=== PATIENT | female | born 1980 | race Hispanic/Latino ===

== ENCOUNTER 2019-11-08 12:18 | Emergency (ER) | payer BC, OTHER ==
[~2019-11-08] VITALS: Ht 162.6 cm; Wt 76.2 kg
[~2019-11-08 12:18] MED LIST: Z.0.DIAZEPAM5 MG; Z.0.DIFLUNISAL500 MG; Z.0.PREDNISONE20 MG; Z.0.PRENATAL VITAM1
[2019-11-08 12:33] VITALS: BP 135/68
[2019-11-08 12:55] LABS: STREPTOCOCCUS GRP A ANTIGEN POSITIVE (NEGATIVE)
[2019-11-08 13:00] LABS: INFLUENZAE A&B ANTIGEN (RAPID) NEGATIVE (NEGATIVE)
[2019-11-08] MEDS: IBUPROFEN 400 MG TAB PO ONE (13:18)
[2019-11-08] MEDS: PREDNISONE 20 MG TAB PO ONE (13:18)
--- NOTE | 2019-11-08 13:18 | Diagnostic Imaging Report ---
Examination: Single AP view of the chest. COMPARISON: None. INDICATION: Cough IMPRESSION: 1. Lines and Tubes: None 2. Lungs are grossly clear. No consolidation or effusion. 3. Cardiomediastinal silhouette is normal. Pulmonary vasculature is normal. 4. No acute bony abnormalities. Signed by: Dr. Tj Taveras M.D. on 11/08/2019 1:15 PM
== END 2019-11-08 13:32 | disposition home or self-care (01) ==
LOC: ER 12:18
DX: R50.9 Fever, unspecified (principal); R05 Cough; J02.0 Streptococcal pharyngitis
CPT/HCPCS: 71045; 83518; 87400; 99282; J7512